=== PATIENT | female | born 1950 | race Caucasian/White ===

== ENCOUNTER 2017-06-13 08:20 | Emergency (ER) | payer MEDICARE, MEDICAID ==
[~2017-06-13] VITALS: Ht 165.1 cm; Wt 100.0 kg
[~2017-06-13 08:20] MED LIST: ADVAIR HF1 IN; ALBUTEROL SUL0.083 % IN; AMOXICILLIN500 MG PO; ATROVENT I0.5 MG/VIA IN; B12-ACTIVE1 MG PO; CHERATUSSIN PO; CYCLOBENZAPR10 MG PO; CYCLOBENZAPR5 MG PO; DESONIDE0.05 % EX; DESONIDE0.05 % TOP; FISH OIL1000 MG PO; FLEXERIL OR; FLEXERIL5 M1 PO; FLONASE NASAL50 MCG; FLUARIX QUADRIV1 INJ IM; FLUCONAZOLE100 MG PO; FLUTICASONE50 MCG; KETOCONAZOLE2 % EX; KETOCONAZOLE21 EX; LAMISIL250 MG PO; LIDOCAINE51 TOP; LIPITOR10 M1 PO; MEDDOSEPAK PO; MELOXICAM7.5 MG PO; MULTI FOR HER 50+ PO; NABUMETONE750 MG PO; NEBULIZE1; OMEPRAZOLE20 M1 PO; PAROXETINE HCL20 MG PO; PAROXETINE20 MG PO; PAROXETINE40 MG PO; PAXIL10 MG PO; PENICILLN VK250 MG PO; PNEUMOVAX 23 IM; PRAVASTATIN SOD10 MG PO; PROAIR HFA IN; SOLU-MEDROL125 MG IM; SYMBICORT 80-4.5MCG; TERBINAFINE250 M1 PO; TRAMADOL HCL50 MG PO; TRIAMCINOLON0.13 EX; ULTRAM50 M1 PO; ZITHROMAX250 MG PO; [UNRECOGNIZED DRUG - OTHER] EX
[2017-06-13] MEDS ORDERED: ZITHROMAX250 MG PO (08:51)
[2017-06-13 08:54] VITALS: BP 135/80
== END 2017-06-13 09:00 | disposition home or self-care (01) ==
LOC: ED 08:20
DX: B34.9 Viral infection, unspecified (principal); R09.81 Nasal congestion; R05 Cough

== ENCOUNTER 2020-04-03 07:20 | Day surgery (SDC) | payer MEDICARE, MEDICAID ==
[~2020-04-03] VITALS: Ht 165.1 cm; Wt 94.3 kg
[~2020-04-03 07:20] MED LIST changes: +DITROPAN5 MG/TA1 PO; +DONEPEZIL5 MG PO; +SERTRALINE HCL50 MG PO; +SIMVASTATIN40 MG PO
[2020-04-03 10:15] VITALS: BP 131/61
== END 2020-04-03 10:41 | disposition home or self-care (01) ==
LOC: ENDO 07:20 → ORM 09:10 → ENDO 09:10 → ORM 10:00 → ENDO 10:41
PROVIDERS: ATTEND Internal Medicine Gastroenterology
PROC: 0DB98ZX Excision of Duodenum, Via Natural or Artificial Opening Endoscopic, Diagnostic (ICD-10-PCS; principal; 2020-04-03)
PROC: 0DB48ZX Excision of Esophagogastric Junction, Via Natural or Artificial Opening Endoscopic, Diagnostic (ICD-10-PCS; 2020-04-03)
PROC: 0DBE8ZX Excision of Large Intestine, Via Natural or Artificial Opening Endoscopic, Diagnostic (ICD-10-PCS; 2020-04-03)
DX: K22.70 Barrett's esophagus without dysplasia (principal); K44.9 Diaphragmatic hernia without obstruction or gangrene; K29.70 Gastritis, unspecified, without bleeding; K57.30 Diverticulosis of large intestine without perforation or abscess without bleeding; Q43.9 Congenital malformation of intestine, unspecified; K64.8 Other hemorrhoids; Z86.010 Personal history of colon polyps; Z20.828 Contact with and (suspected) exposure to other viral communicable diseases

== ENCOUNTER 2020-12-01 10:36 | Emergency (ER) | payer MEDICARE, MEDICAID ==
[2020-12-01 12:16] LABS: HEMATOCRIT 46.9 % (37.0-47.0); HEMOGLOBIN 15.3 g/dl (12.0-16.0); IMMATURE GRANULOCYTES 0.3 % (0.0-5.0); MEAN CELL VOLUME 94.7 fL CALC (80.0-100.0); MEAN CORPUSCULAR HGB 30.9 pG CALC (26.0-32.0); MEAN CORPUSCULAR HGB CONC 32.6 g/dL CAL (32.0-36.0); NEUT# 7.01 thou/uL (2.00-7.15); RED BLOOD COUNT 4.95 mill/uL (4.20-5.60)
[2020-12-01 12:40] LABS: ALBUMIN 4.4 g/dL (3.2-5.0); ALKALINE PHOSPHATASE 53 u/l (38-126); AMYLASE 36 u/l (30-110); ANION GAP 12 (6-22 (CALC)); BILIRUBIN, TOTAL 0.7 mg/dL (0.0-1.4); BUN 19 mg/dL (8-23); BUN/CREATININE RATIO 26 (12-20 (CALC)); CARBON DIOXIDE 29 mmol/l (22-30); CHLORIDE 103 mmol/l (95-108); CREATININE 0.7 mg/dL (0.5-1.0); GFR > 60 ML/MIN (>=60 (CALC)); GFR FOR AFR.AMER. > 60 ML/MIN (>=60 (CALC)); LIPASE 21 u/l (23-300); POTASSIUM 4.1 mmol/l (3.5-5.1); SGOT/AST 30 u/l (9-36); SODIUM 141 mmol/l (137-146); TOTAL PROTEIN 7.6 g/dL (6.3-8.2)
[2020-12-01 12:44] LABS: ACT PARTIAL THROMBO TIME 25.3 SECONDS (20.0-32.5); PROTHROMBIN TIME 10.3 SECONDS (9.0-12.5)
[2020-12-01 13:48] LABS: URINE BILIRUBIN - DIPSTICK NEGATIVE (NEGATIVE); URINE BLOOD DIPSTICK NEGATIVE (NEGATIVE); URINE COLOR YELLOW; URINE GLUCOSE - DIPSTICK NEGATIVE (NEGATIVE); URINE KETONE NEGATIVE (NEGATIVE); URINE LEUK ESTERASE NEGATIVE (NEGATIVE); URINE PROTEIN - DIPSTICK NEGATIVE (NEG-TRACE)
[2020-12-01 13:51] LABS: URINE NITRITE - DIPSTICK NEGATIVE (Negative)
[2020-12-01] MEDS ORDERED: ZOFRAN4 MG/TAB PO (14:12)
[2020-12-01 14:49] VITALS: BP 139/67
== END 2020-12-01 14:58 | disposition home or self-care (01) ==
LOC: ED 10:36
DX: R11.2 Nausea with vomiting, unspecified (principal); F03.90 Unspecified dementia, unspecified severity, without behavioral disturbance, psychotic disturbance, mood disturbance, and anxiety; E78.5 Hyperlipidemia, unspecified; R94.31 Abnormal electrocardiogram [ECG] [EKG]
CPT/HCPCS: Q9967

== ENCOUNTER 2021-03-27 08:46 | Emergency (ER) | payer MEDICARE, MEDICAID ==
[~2021-03-27 08:46] MED LIST changes: +ZOFRAN4 MG/TAB PO
== END 2021-03-27 09:32 | disposition left against medical advice (07) ==
LOC: ED 08:46 → LWOBS 09:31
DX: Z91.19 Patient's noncompliance with other medical treatment and regimen (principal)

== ENCOUNTER 2021-09-14 08:30 | Emergency (ER) | payer MEDICARE, MEDICAID ==
[~2021-09-14] VITALS: Ht 165.1 cm; Wt 75.0 kg
[2021-09-14] MEDS ORDERED: AMOXICILLIN500 MG PO (09:22)
[2021-09-14 09:44] VITALS: BP 131/67
== END 2021-09-14 10:00 | disposition home or self-care (01) ==
LOC: ED 08:30
DX: K05.10 Chronic gingivitis, plaque induced (principal); I88.8 Other nonspecific lymphadenitis; E78.5 Hyperlipidemia, unspecified; F03.90 Unspecified dementia, unspecified severity, without behavioral disturbance, psychotic disturbance, mood disturbance, and anxiety; F17.200 Nicotine dependence, unspecified, uncomplicated